=== PATIENT | male | born 1960 | race Caucasian/White ===

== ENCOUNTER 2023-01-26 10:36 | Day surgery (SDC) | payer OTHER ==
[~2023-01-26] VITALS: Ht 182.9 cm; Wt 157.2 kg
[~2023-01-26 10:36] MED LIST: APIX5TAB PO; ATOR20TA PO; INSU3INS3; LISI-892 PO; METF-1211 PO; SODIUM CHLORIDE 0.9% 1,000 ML ONE
[2023-01-26] MEDS ORDERED: PROPOFOL 1% 20 ML VIAL IVP ONE (10:37)
[2023-01-26] MEDS ORDERED: LIDOCAINE/PF 2% 5 ML VIAL IM ONE (10:37)
[2023-01-26] MEDS ORDERED: SODIUM CHLORIDE 0.9% 1,000 ML IV ONE (11:00)
[2023-01-26 11:26] LABS: GLUCOMETER DEV NAME(LOC) SDS.; GLUCOSE,POINT OF CARE 120 MG/DL (70-110)
== END 2023-01-26 14:30 | disposition home or self-care (01) ==
LOC: SURGERY 10:36
PROVIDERS: ATTEND Internal Medicine Gastroenterology
DX: K51.90 Ulcerative colitis, unspecified, without complications (principal); K57.30 Diverticulosis of large intestine without perforation or abscess without bleeding; K64.9 Unspecified hemorrhoids; Z86.718 Personal history of other venous thrombosis and embolism; I10 Essential (primary) hypertension; E78.5 Hyperlipidemia, unspecified; E66.01 Morbid (severe) obesity due to excess calories; E11.9 Type 2 diabetes mellitus without complications; Z79.899 Other long term (current) drug therapy; Z68.42 Body mass index [BMI] 45.0-49.9, adult
CPT/HCPCS: 82962; 45380; C1769; J2704; J3490; J7030